=== PATIENT | female | born 1985 | race Caucasian/White ===

== ENCOUNTER 2021-02-25 11:45 | Outpatient (CLI) | payer BC | END 2021-02-25 20:51 | disposition home or self-care (01) | LOC: GENOP 11:45 | DX: O26.852 Spotting complicating pregnancy, second trimester (principal); O99.891 Other specified diseases and conditions complicating pregnancy; R10.30 Lower abdominal pain, unspecified; M54.5 Low back pain; R19.7 Diarrhea, unspecified; O21.2 Late vomiting of pregnancy; O10.912 Unspecified pre-existing hypertension complicating pregnancy, second trimester; Z88.1 Allergy status to other antibiotic agents; Z79.82 Long term (current) use of aspirin; Z3A.26 26 weeks gestation of pregnancy | CPT/HCPCS: 81001; 96365; 96366; 96367; J0696; J7030; J7120 ==

== ENCOUNTER 2021-03-03 23:25 | Outpatient (CLI) | payer BC | END 2021-03-04 02:04 | disposition home or self-care (01) | LOC: GENOP 23:25 | DX: O46.92 Antepartum hemorrhage, unspecified, second trimester (principal); O99.891 Other specified diseases and conditions complicating pregnancy; R10.2 Pelvic and perineal pain; M54.5 Low back pain; M79.652 Pain in left thigh; M79.651 Pain in right thigh; O10.912 Unspecified pre-existing hypertension complicating pregnancy, second trimester; O99.282 Endocrine, nutritional and metabolic diseases complicating pregnancy, second trimester; E28.2 Polycystic ovarian syndrome; O92.29 Other disorders of breast associated with pregnancy and the puerperium; O99.332 Smoking (tobacco) complicating pregnancy, second trimester; F17.200 Nicotine dependence, unspecified, uncomplicated; Z79.82 Long term (current) use of aspirin; Z88.1 Allergy status to other antibiotic agents; Z3A.26 26 weeks gestation of pregnancy | CPT/HCPCS: G0463 ==

== ENCOUNTER 2021-04-29 20:24 | Outpatient (CLI) | payer BC | END 2021-04-29 23:17 | disposition home or self-care (01) | LOC: GENOP 20:24 | DX: O42.90 Premature rupture of membranes, unspecified as to length of time between rupture and onset of labor, unspecified weeks of gestation (principal); Z3A.34 34 weeks gestation of pregnancy; Z88.1 Allergy status to other antibiotic agents | CPT/HCPCS: 81001; 83518; G0463; J0696 ==